=== PATIENT | male | born 1960 | race American Indian/Alaskan Native ===

== ENCOUNTER 2019-06-14 04:50 | Observation (INO) | payer MEDICAID ==
[2019-06-14 05:33] LABS: Basophils % (Auto) 0.4 % (0.0-1.8); Eosinophils # (Auto) 0.1 K/mm3 (0.0-0.4); Hematocrit 42.8 % (35.5-45.6); Hemoglobin 14.1 gm/dl (11.8-15.2); Lymphocytes # (Auto) 1.4 K/mm3 (1.2-5.4); Lymphocytes % (Auto) 22.6 % (13.4-35.0); Mean Corpuscular HGB Conc 33 % (32-34); Mean Corpuscular Volume 83 fl (84-94); Monocytes # (Auto) 0.4 K/mm3 (0.0-0.8); Monocytes % (Auto) 7.2 % (0.0-7.3); Platelet Count 255 K/mm3 (140-440); Red Blood Count 5.16 M/mm3 (3.65-5.03); Red Cell Distribution Width 13.9 % (13.2-15.2)
--- NOTE | 2019-06-14 05:40 | XRay Report ---
CHEST 1 VIEW INDICATION / CLINICAL INFORMATION: Chest Pain. COMPARISON: None available. FINDINGS: SUPPORT DEVICES: None. HEART / MEDIASTINUM: No significant abnormality. LUNGS / PLEURA: No significant pulmonary or pleural abnormality. No pneumothorax. ADDITIONAL FINDINGS: No significant additional findings. IMPRESSION: 1. No acute findings. Signer Name: Harvey Morales MD Signed: 06/14/2019 5:36 AM Workstation Name: [id number]
[2019-06-14 05:48] LABS: BUN/Creatinine Ratio 23; Blood Urea Nitrogen 18 mg/dL (9-20); Calcium 8.4 mg/dL (8.4-10.2); Hemolysis Index 6
[2019-06-14] MEDS ORDERED: MORPHINE 4 MG/1 ML INJ IV ONE (06:33)
--- NOTE | 2019-06-14 06:43 | Emergency Department Report ---
ED Chest Pain HPI - General Chief Complaint: Chest Pain Stated Complaint: CHEST PAIN/NAUSEA/EMESIS Time Seen by Provider: 06/14/19 06:00 Source: EMS Mode of arrival: Stretcher Limitations: No Limitations - History of Present Illness Initial Comments: 59-year-old -[place] male presents to the emergency department via EMS from home with complaint of some midsternal to left-sided sharp chest pains that started about one hour prior to arrival. He did not take anything for his symptoms at home but didn't receive nitroglycerin and aspirin in route with EMS. He had some transient improvement but says that the pain is returning and is currently 8 out of 10 in intensity. The patient has a history of hypertension, coronary artery disease without any cardiac stents, hypoglycemia, vertigo. She is a tobacco smoker but denies any illicit drug use. 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 No recent travel or sick contacts at home. The chest pain is associated with shortness of breath and nausea. He says that he has not had a stress test in many years. Severity scale (0 -10): 7 - Related Data Allergies Allergy/AdvReac Type Severity Reaction Status Date / Time No Known Allergies Allergy Verified 06/14/19 09:25 Heart Score - HEART Score History: Moderately suspicious EKG: Normal Age: 45-65 Risk factors: 1-2 risk factors Troponin: < normal limit HEART Score: 3 - Critical Actions Critical Actions: 0-3 pts:0.9-1.7%risk of adverse cardiac event.Candidate for discharge ED Review of Systems ROS: Stated complaint: CHEST PAIN/NAUSEA/EMESIS Other details as noted in HPI Comment: All other systems reviewed and negative Constitutional: denies: chills, fever Eyes: denies: eye pain, vision change ENT: denies: ear pain, throat pain Respiratory: shortness of breath. denies: cough Cardiovascular: chest pain. denies: palpitations Gastrointestinal: nausea. denies: abdominal pain Genitourinary: denies: dysuria, discharge Musculoskeletal: denies: back pain, arthralgia Skin: denies: rash, lesions Neurological: denies: headache, weakness ED Past Medical Hx - Past Medical History Previous Medical History?: Yes Hx Hypertension: Yes Hx Diabetes: Yes Additional medical history: Vertigo, CAD, Prostate - Social History Smoking Status: Current Every Day Smoker Substance Use Type: None ED Physical Exam - General Limitations: No Limitations - Other Other exam information: GENERAL: The patient is well-developed well-nourished. HENT: Normocephalic. Atraumatic. Patient has moist mucous membranes. EYES: Extraocular motions are intact. NECK: Supple. Trachea is midline. CHEST/LUNGS: Clear to auscultation. There is no respiratory distress noted. HEART/CARDIOVASCULAR: Regular. There is no tachycardia. There is no murmur. ABDOMEN: Abdomen is soft, nontender. Patient has normal bowel sounds. There is no abdominal distention. SKIN: Skin is warm and dry. NEURO: The patient is awake, alert, and oriented. The patient is cooperative. The patient has no focal neurologic deficits. Normal speech. MUSCULOSKELETAL: There is no tenderness or deformity. There is no evidence of acute injury. ED Course Vital Signs 06/14/19 06/14/19 06/14/19 04:54 05:05 05:06 Temperature 98.5 F 98.1 F Pulse Rate 92 H 87 90 Respiratory 18 12 16 Rate Blood Pressure 119/74 Blood Pressure 130/77 [Left] O2 Sat by Pulse 99 98 Oximetry 06/14/19 06/14/19 06/14/19 05:16 05:30 05:46 Temperature Pulse Rate 87 83 78 Respiratory 11 L 11 L 13 Rate Blood Pressure 130/77 130/77 130/77 Blood Pressure [Left] O2 Sat by Pulse Oximetry 06/14/19 06/14/19 06/14/19 06:00 06:16 06:30 Temperature Pulse Rate 83 83 83 Respiratory 13 12 15 Rate Blood Pressure 130/77 130/77 130/77 Blood Pressure [Left] O2 Sat by Pulse Oximetry 06/14/19 06/14/19 06/14/19 06:32 06:46 07:00 Temperature Pulse Rate 80 81 76 Respiratory 18 15 11 L Rate Blood Pressure 125/79 125/79 Blood Pressure 125/79 [Left] O2 Sat by Pulse 98 100 100 Oximetry 06/14/19 06/14/19 06/14/19 07:10 07:11 07:16 Temperature 97.9 F Pulse Rate 85 83 Respiratory 14 14 14 Rate Blood Pressure 110/61 Blood Pressure 110/61 [Left] O2 Sat by Pulse 100 100 Oximetry 06/14/19 06/14/19 07:30 07:46 Temperature Pulse Rate 83 Respiratory 16 Rate Blood Pressure 115/75 110/61 Blood Pressure [Left] O2 Sat by Pulse 100 99 Oximetry CEZAR score - Cezar Score Age > 65: (0) No Aspirin use within the Past 7 Days: (1) Yes 3 or more CAD Risk Factors: (1) Yes 2 or more Angina events in past 24 hrs: (1) Yes Known CAD with more than 50% Stenosis: (0) No Elevated Cardiac Markers: (0) No ST Deviation Greater than 0.5mm: (0) No CEZAR Score: 3 ED Medical Decision Making - Lab Data Result diagrams: 06/14/19 05:15 06/14/19 05:15 - EKG Data -: EKG Interpreted by Me EKG shows normal: sinus rhythm, axis, intervals, QRS complexes (q waves to the anterior leads), ST-T waves Rate: normal - EKG Data When compared to previous EKG there are: previous EKG unavailable Interpretation: other (Sinus, Q waves to anterior leads) - Radiology Data Radiology results: image reviewed interpreted by me: Chest x-ray does not show any acute process. There are no pleural effusions, obvious pneumonia and there is no pneumothorax. - Medical Decision Making This patient presents with some acute chest pain starting about one hour prior to presentation. He has a history of hypertension and coronary artery disease. EKG does not show any signs of ST elevation ME. Patient has had negative troponins 2 and a negative dimer thus far. He had some aspirin and nitroglycerin that caused some transient improvement in his discomfort but the pain or angina came back. He was given some morphine. It is been at least a few years since his last stress test. He has a moderate Cezar and heart score. Patient will be admitted to the hospital for further evaluation and treatment and was accepted for admission by the hospitalist service. - Differential Diagnosis ME, PE, costochondritis, GERD, pneumonia Critical Care Time: No Critical care attestation.: If time is entered above; I have spent that time in minutes in the direct care of this critically ill patient, excluding procedure time. ED Disposition Clinical Impression: Acute chest pain, History of coronary artery disease Disposition: OP ADMIT IP TO THIS HOSP Is pt being admited?: Yes Condition: Fair Instructions: Chest Pain (ED) Referrals: [facility] [Other] - 3-5 Days Time of Disposition: 08:44
--- NOTE | 2019-06-14 09:09 | History and Physical Report ---
History of Present Illness Date of examination: 06/14/19 Date of admission: 06/14/19 Chief complaint: Chest pain History of present illness: The pt is a 59-year-old male with a past medical history of HTN, tobacco use, occasional cocaine use (powder) reguarly sees a PCP at [facility] [place] presented with c/o chest pain for about an hour. He describes his chest pain as sharp, midsternal to left-sided. The pain was associated with some nausea and vomiting. He denies any SOB, palpitations, diaphoresis, dizziness or syncope. He last used cocaine on Wednesday. He did not take anything for his symptoms at home but didn't receive nitroglycerin and aspirin in route with EMS. He had some transient improvement but says that the pain is returning and is currently 8 out of 10 in intensity. His initial set of cardiac enzymes in the ER is negative, chest x-ray showed no infiltrates. His symptoms somewhat stable. Stress test has been ordered, cardiology has been consulted. We will admit this patient for observation to complete his cardiac workup. Review of System: Constitutional: no fever, no chills, no weight loss Ears, eyes, nose, mouth and throat: no nasal congestion, no nasal discharge, no sinus pressure, no vision change, no red eye. Neck: No neck pain or rigidity. Cardiovascular: + chest pain, no orthopnea, no palpitations, no leg swelling Respiratory: No shortness of breath, no cough, no congestion, no wheezing Gastrointestinal: no abdominal pain, no nausea, no vomiting Genitourinary : no dysuria, no hematuria Musculoskeletal: no joint swelling or muscle ache Integumentary: no rash, no pruritis Neurological: no parathesias, no numbness, no tingling Endocrine: no cold or heat intolerance, no polyuria or polydipsia Hematologic/Lymphatic: no easy bruising, no easy bleeding, no gland swelling Allergic/Immunologic: no urticaria, no angioedema. Past History Past Medical History: hypertension, hyperlipidemia Past Surgical History: No surgical history Social history: smoking, other (cocaine abuse) Family history: hypertension Medications and Allergies Allergies Allergy/AdvReac Type Severity Reaction Status Date / Time No Known Allergies Allergy Verified 06/14/19 09:25 Home Medications Medication Instructions Recorded Confirmed Last Taken Type Ibuprofen [Motrin 400 MG tab] 400 mg PO Q8H PRN #10 tablet 06/14/19 Unknown Rx Exam - Physical Exam Narrative exam: GENERAL: well-developed and well-nourished male lying on bed appeared to be in no discomfort. HEENT: Normocephalic. Atraumatic. No conjunctival congestion or icterus. Patient has moist mucous membranes. NECK: Supple. Trachea midline. CHEST/LUNGS: Clear to auscultated bilaterally, breathing nonlabored. No wheezes crackles or rhonchi. chest Pain reproducible with palpation of the sternum HEART/CARDIOVASCULAR: Regular in rate and rhythm. S1 and S2 positive. ABDOMEN: Abdomen is soft, nontender. Patient has normal bowel sounds. SKIN: There is no rash. Warm and dry. NEURO: No focal motor deficit. Follows command. MUSCULOSKELETAL: No joint effusion or tenderness. EXTRIMITY: No edema, no cyanosis or clubbing. PSYCH: Cooperative. - Constitutional Vitals: Temp Pulse Resp BP Pulse Ox 97.9 F 83 16 110/61 99 06/14/19 07:10 06/14/19 07:30 06/14/19 07:30 06/14/19 07:46 06/14/19 07:46 Results - Labs CBC & Chem 7: 06/14/19 05:15 06/14/19 05:15 Labs: Abnormal lab results 06/14/19 Range/Units 05:15 RBC 5.16 H (3.65-5.03) M/mm3 MCV 83 L (84-94) fl MCH 27 L (28-32) pg - Imaging and Cardiology Chest x-ray: report reviewed (no infiltrates) Assessment and Plan Acute chest pain - Need to rule out ACS with a history of hypertension hyperlipidemia extensive tobacco abuse and cocaine abuse - Reproducible with chest palpation, could be costochondritis also -Initial troponin x2 is negative, - - will admit to telemetry bed - monitor with serial CE and EKG - will place on Aspirin, statin - as needed SL NTG and iv morphin for pain - Monitor BP, add betablocker and ACEI if BP tolerates - order 2D echo and stress test, Cardiologic consult Hypertension, - cont to monitor, appears stable now Hyperlipidemia, we'll continue statin Tobacco abuse, counseled for cessation Cocaine abuse, counseled for cessation - provide DVT Px with lovenox
[2019-06-14] MEDS ORDERED: MORPHINE 2 MG/1 ML INJ IV PRN (09:30)
[2019-06-14] MEDS ORDERED: NITROGLYCERIN 0.4 MG TAB SUBL SL PRN (09:30)
[2019-06-14] MEDS ORDERED: PANTOPRAZOLE 40 MG TAB PO SCH (10:00)
[2019-06-14] MEDS ORDERED: PANTOPRAZOLE 40 MG TAB PO ONE (10:04)
[2019-06-14] MEDS ORDERED: REGADENOSON 0.4 MG/5 ML INJ IV ONE (10:41)
--- NOTE | 2019-06-14 12:39 | Consultation ---
History of Present Illness Consult date: 06/14/19 Requesting physician: KG VAUGHN Consult reason: chest pain History of present illness: The pt is a 59-year-old male with a past medical history of HTN, tobacco use, occasional cocaine use (powder). He reports he reguarly sees a PCP at [place]. He presented with c/o chest pain which started one hour prior to arrival. He describes his chest pain as a midsternal to left-sided sharp pain which is highly reproducible with palpation of the sternum. The pain was associated with some nausea and vomiting. He denies any SOB, palpitations, diaphoresis, dizziness or syncope. He last used cocaine on Wednesday. Past History Past Medical History: hypertension Social history: smoking, other (cocaine use) Medications and Allergies Allergies Allergy/AdvReac Type Severity Reaction Status Date / Time No Known Allergies Allergy Verified 06/14/19 09:25 Active Meds: Active Medications Atorvastatin Calcium (Lipitor) 80 mg PO QHS TOSIN Morphine Sulfate (Morphine) 2 mg IV Q5MIN PRN PRN Reason: Chest Pain unrelieved by NTG Nitroglycerin (Nitrostat) 0.4 mg SL Q5M PRN PRN Reason: Chest Pain Pantoprazole Sodium (Protonix) 40 mg PO QDAY [facility] Last Admin: 06/14/19 10:07 Dose: 40 mg Documented by: Sodium Chloride (Sodium Chloride Flush Syringe 10 Ml) 10 ml IV PRN PRN PRN Reason: LINE FLUSH Zolpidem Tartrate (Ambien) 10 mg PO QHS PRN PRN Reason: Sleep Review of Systems Constitutional: no weight loss, no weight gain, no fever, no chills, no sweats Ears, nose, mouth and throat: no ear pain, no nose pain, no sinus pressure, no sinus pain Cardiovascular: chest pain, no orthopnea, no palpitations, no rapid/irregular heart beat, no edema, no syncope, no lightheadedness, no shortness of breath, no dyspnea on exertion, no leg edema Respiratory: no cough, no shortness of breath, no dyspnea on exertion, no congestion, no wheezing, no pain on inspiration Gastrointestinal: nausea, vomiting, no abdominal pain, no diarrhea, no constipa tion, no change in bowel habits, no hematemesis, no coffee ground emesis Genitourinary Male: no dysuria, no hematuria, no flank pain, no discharge, no urinary frequency, no urinary hesitancy Musculoskeletal: no neck stiffness, no neck pain, no shooting arm pain, no arm numbness/tingling, no low back pain, no shooting leg pain Integumentary: no rash, no pruritis, no redness, no sores, no wounds Neurological: no head injury, no paralysis, no weakness, no parathesias, no numbness, no tingling, no seizures, no syncope Psychiatric: no anxiety Endocrine: no cold intolerance, no heat intolerance Hematologic/Lymphatic: no easy bruising, no easy bleeding Allergic/Immunologic: no urticaria, no wheezing Physical Examination Vital Signs Temp Pulse Resp BP Pulse Ox 98.5 F 92 H 18 119/74 99 06/14/19 04:54 06/14/19 04:54 06/14/19 04:54 06/14/19 04:54 06/14/19 04:54 General appearance: no acute distress HEENT: Positive: PERRL, Normocephaly, Mucus Membranes Moist Neck: Positive: neck supple, trachea midline Cardiac: Positive: Reg Rate and Rhythm, S1/S2 Lungs: Positive: Decreased Breath Sounds Neuro: Positive: Grossly Intact Abdomen: Negative: Tender Skin: Negative: Rash Musculoskeletal: No Pain Extremities: Absent: edema Results 06/14/19 05:15 06/14/19 05:15 CBC 06/14/19 Range/Units 05:15 WBC 6.2 (4.5-11.0) K/mm3 RBC 5.16 H (3.65-5.03) M/mm3 Hgb 14.1 (11.8-15.2) gm/dl Hct 42.8 (35.5-45.6) % Plt Count 255 (140-440) K/mm3 Lymph # 1.4 (1.2-5.4) K/mm3 [place] # 0.4 (0.0-0.8) K/mm3 Eos # 0.1 (0.0-0.4) K/mm3 Baso # 0.0 (0.0-0.1) K/mm3 Comprehensive Metabolic Panel 06/14/19 Range/Units 05:15 Sodium 141 (137-145) mmol/L Potassium 3.6 (3.6-5.0) mmol/L Chloride 104.9 (98-107) mmol/L Carbon Dioxide 25 (22-30) mmol/L BUN 18 (9-20) mg/dL Creatinine 0.8 (0.8-1.5) mg/dL Glucose 93 (75-100) mg/dL Calcium 8.4 (8.4-10.2) mg/dL - Imaging and Cardiology EKG: report reviewed, image reviewed EKG interpretations - Telemetry EKG Rhythm: Sinus Rhythm - EKG Sinus rhythms and dysrhythmias: sinus rhythm Assessment and Plan Chest pain is highly reproducible with palpation of the chest wall. AMI ruled out. DDimer WNL. S/p lexiscan MPI stress test this AM which was negative. Currently stable cardiac status. Pt may discharge home from cardiology standpoint. Recommend pt follow up with either [facility] or in our office with Dr. Nayla Pollock within 1-2 weeks ([phone]). Cessation of cocaine and tobacco use strongly encouraged. Pt verbalizes understanding. The patient has been seen in conjunction with Dr. Nayla Pollock who agrees with the assessment and plan of care. - Patient Problems (1) Chest pain Current Visit: Yes Status: Acute (2) HTN (hypertension) Current Visit: Yes Status: Chronic (3) History of cocaine use Current Visit: Yes Status: Chronic (4) Tobacco use Current Visit: Yes Status: Chronic
--- NOTE | 2019-06-14 13:12 | Treadmill Report ---
NUCLEAR STRESS TEST REFERRING PHYSICIAN: Radha Moore MD PROTOCOL: The patient was brought to the stress lab in a postoperative state, given 10 mCi of technetium 99m at rest. The patient underwent rest imaging. The patient underwent Lexiscan stress test. At peak stress, the patient was given 26 mCi of technetium 99m. Shortly thereafter, the patient underwent stress imaging. Raw imaging reveals technically difficult study due to GI artifact, but grossly no evidence of a significant fixed or reversible perfusion defects suggestive of prior infarction or ischemia. Gated wall motion reveals normal systolic thickening, calculated ejection fraction of 64%. No TID. CONCLUSIONS: 1. Technically difficult study due to GI artifact, but grossly probably normal without evidence of significant degree of ischemia or prior infarction. 2. Normal left ventricular systolic performance without evidence of transient ischemic dilatation or stress-induced segmental wall motion abnormalities. JOB# [id number] PHILIP/TOOTIE
--- NOTE | 2019-06-14 13:59 | Discharge Summary ---
Providers - Providers Date of Admission: 06/14/19 08:44 Date of discharge: 06/14/19 Attending physician: KG VAUGHN 06/14/19 Consult to Cardiac Rehabilitation [CONS] Routine Reason For Exam: Phase I 06/14/19 09:09 Consult to Physician [CONS] Routine Comment: CHEPE BARRIENTOS CAME TO SEE PT @1014 Consulting Provider: VERONICA JOHNSON Physician Instructions: Reason For Exam: chest pain Hospitalization Condition: Fair Pertinent studies: chest x-ray Exercise stress test Hospital course: 59-year-old male with a history of HTN/HLD presented to the ER with complaints of Retrosternal chest pain for one hour. Patient was evaluated in the ER, initial cardiac enzyme and EKG was unremarkable, chest x-ray showed no infiltrates. Patient was admitted, cardiology was consulted and underwent myocardial stress test which was normal. Patient was then discharged home in stable condition with outpatient cardiology follow-up. Discharge diagnosis and Mx: Acute chest pain, ACS ruled out - Reproducible with chest palpation, likely costochondritis - Needed to rule out ACS with a history of hypertension hyperlipidemia extensive tobacco abuse and cocaine abuse -Initial troponin x2 is negative, chest x-ray showed no infiltrates, stress test was negative -Patient was recommended to follow-up with Cardiology as outpatient Hypertension, - diet controlled Hyperlipidemia, we'll continue statin Tobacco abuse, counseled for cessation Cocaine abuse, counseled for cessation - provided DVT Px with lovenox Disposition: DC-01 TO HOME OR SELFCARE Time spent for discharge: 34 minutes Core Measure Documentation - Palliative Care Palliative Care/ Comfort Measures: Not Applicable - Core Measures Any of the following diagnoses?: none Exam - Physical Exam Narrative exam: GENERAL: well-developed and well-nourished male lying on bed appeared to be in no discomfort. HEENT: Normocephalic. Atraumatic. No conjunctival congestion or icterus. Patient has moist mucous membranes. NECK: Supple. Trachea midline. CHEST/LUNGS: Clear to auscultated bilaterally, breathing nonlabored. No wheezes crackles or rhonchi. chest Pain reproducible with palpation of the sternum HEART/CARDIOVASCULAR: Regular in rate and rhythm. S1 and S2 positive. ABDOMEN: Abdomen is soft, nontender. Patient has normal bowel sounds. SKIN: There is no rash. Warm and dry. NEURO: No focal motor deficit. Follows command. MUSCULOSKELETAL: No joint effusion or tenderness. EXTRIMITY: No edema, no cyanosis or clubbing. PSYCH: Cooperative. - Constitutional Vitals: Temp Pulse Resp BP Pulse Ox 97.9 F 79 20 112/74 98 06/14/19 07:10 06/14/19 10:16 06/14/19 13:19 06/14/19 11:40 06/14/19 08:30 Plan Activity: advance as tolerated Weight Bearing Status: Weight Bear as Tolerated Diet: low fat, low salt Follow up with: [facility] [Other] - 3-5 Days MELISSA LARSON MD [Staff Physician] - 7 Days Prescriptions: Pravastatin [Pravachol] 40 mg PO QHS #30 tablet Aspirin [Aspirin BABY CHEW TAB] 81 mg PO QDAY #30 tab.chew Ibuprofen [Motrin 400 MG tab] 400 mg PO Q8H PRN #10 tablet PRN Reason: Pain, Moderate (4-6)
[2019-06-14 14:34] LABS: BUN/Creatinine Ratio 18; Blood Urea Nitrogen 16 mg/dL (9-20); Calcium 8.8 mg/dL (8.4-10.2); Hemolysis Index 7
[2019-06-14 15:51] VITALS: BP 122/69
[2019-06-14] MEDS ORDERED: ZOLPIDEM 5 MG TAB PO PRN (22:00)
== END 2019-06-14 17:30 | disposition home or self-care (01) ==
LOC: ED 04:50 → 4A 08:44
PROVIDERS: ADMIT Internal Medicine; ATTEND Internal Medicine
DX: R07.89 Other chest pain (principal); I10 Essential (primary) hypertension; I25.10 Atherosclerotic heart disease of native coronary artery without angina pectoris; E78.5 Hyperlipidemia, unspecified; E11.9 Type 2 diabetes mellitus without complications; F17.200 Nicotine dependence, unspecified, uncomplicated; F14.10 Cocaine abuse, uncomplicated; Z86.79 Personal history of other diseases of the circulatory system
CPT/HCPCS: 36415; 71045; 78452; 80048; 83880; 84484; 85025; 85379; 87116; 93005; 93010; 93017; 96374; 99284; 99406; A9502; G0378; J2270; J2785